=== PATIENT | male | born 1975 | race African-American/Black ===

== ENCOUNTER 2020-09-10 20:55 | Emergency (ER) | payer MEDICAID ==
[~2020-09-10] VITALS: Ht 175.3 cm; Wt 70.3 kg
[2020-09-10 21:01] VITALS: BP 130/91
[2020-09-10] MEDS ORDERED: CANE MISCELL (21:15)
[2020-09-10] MEDS ORDERED: IBUPROFEN 800800 MG PO (21:15)
== END 2020-09-10 21:38 | disposition home or self-care (01) ==
LOC: M.ERS 20:55
DX: G89.29 Other chronic pain (principal); M25.562 Pain in left knee

== ENCOUNTER 2020-10-07 22:50 | Emergency (ER) | payer MEDICAID ==
[~2020-10-07] VITALS: Ht 172.7 cm; Wt 63.5 kg
[~2020-10-07 22:50] MED LIST: CANE MISCELL; IBUPROFEN 800800 MG PO
[2020-10-07 23:13] VITALS: BP 144/91
[2020-10-08] MEDS ORDERED: DEPAKOTE250 MG PO (04:39)
[2020-10-08] MEDS ORDERED: TYLENOL 8 HOUR650 MG PO (04:47)
== END 2020-10-07 23:14 | disposition home or self-care (01) ==
LOC: M.ERS 22:50
DX: M25.562 Pain in left knee (principal)

== ENCOUNTER 2020-10-08 04:30 | Emergency (ER) | payer MEDICAID ==
[~2020-10-08] VITALS: Ht 175.3 cm; Wt 74.8 kg
[2020-10-08 04:36] VITALS: BP 142/94
[2020-10-08] MEDS ORDERED: DEPAKOTE250 MG PO (04:39)
[2020-10-08] MEDS ORDERED: TYLENOL 8 HOUR650 MG PO (04:47)
== END 2020-10-08 04:58 | disposition home or self-care (01) ==
LOC: M.ERS 04:30
DX: R56.9 Unspecified convulsions (principal); H57.89 Other specified disorders of eye and adnexa